=== PATIENT | male | born 1945 | race Two or more races ===

== ENCOUNTER 2017-09-02 06:14 | Day surgery (SDC) | payer OTHER ==
[2017-09-02 07:10] LABS: ADD MAN DIFF? NO
[2017-09-02 07:14] LABS: BASOPHILS % 0.7 % (0.0-2.0); EOSINOPHILS # 0.6 10^3/ul (0.0-0.5); EOSINOPHILS % 10.1 % (0.0-7.0); HEMATOCRIT 31.9 % (42.0-52.0); HEMOGLOBIN 10.4 g/dl (14.0-18.0); LYMPHOCYTES # 1.7 10^3/ul (0.8-2.9); MEAN CORPUSCULAR HGB CONC 32.6 g/dl (32.0-37.0); MEAN CORPUSCULAR VOLUME 94.9 fl (82.0-101.0); MEAN PLATELET VOLUME 9.4 fl (7.4-10.4); MONOCYTE # 0.5 10^3/ul (0.3-0.9); MONOCYTES % 9.2 % (0.0-11.0); NEUTROPHIL # 2.7 10^3/ul (1.6-7.5); NEUTROPHILS % 48.8 % (39.0-77.0); PLATELET COUNT 233 10^3/UL (140-415); RED BLOOD COUNT 3.36 10^6/ul (4.70-6.10); RED CELL DISTRIBUTION WIDTH 14.4 % (11.5-14.5)
[2017-09-02 07:14] LABS: WHITE BLOOD COUNT 5.5 10^3/ul (4.8-10.8)
[2017-09-02 07:27] LABS: ANION GAP 14 (8-16); CARBON DIOXIDE 27 mmol/L (21-31); CHLORIDE 107 mmol/L (97-110); GLUCOSE 85 mg/dl (70-220)
[2017-09-02 07:33] LABS: BLOOD UREA NITROGEN 24 mg/dl (7-20); CALCIUM 9.1 mg/dl (8.4-10.2); CREATININE 0.94 mg/dl (0.61-1.24); POTASSIUM 4.4 mmol/L (3.5-5.1); SODIUM 144 mmol/L (135-144)
[2017-09-02] MEDS ORDERED: MIDAZOLAM 1 MG/ML 2 ML INJ (07:37)
[2017-09-02] MEDS ORDERED: FENTAnyl 50 MCG/ML VIAL (07:37)
[2017-09-02] MEDS ORDERED: CEFAZOLIN 1 GM INJ (07:37)
[2017-09-02] MEDS ORDERED: PROPOFOL 0 ML (07:37)
[2017-09-02] MEDS: LIDOCAINE 1% (MPF) 30 ML INJ (07:53)
[2017-09-02] MEDS ORDERED: LABETALOL HCL 20MG INJ IV (08:00)
[2017-09-02] MEDS ORDERED: ONDANSETRON 4 MG INJ IV (08:00)
[2017-09-02] MEDS ORDERED: OXYCODONE/ACETAMINOPHEN (5/325) TAB PO ×2 (08:00)
[2017-09-02] MEDS ORDERED: MEPERIDINE 25 MG INJ IV (08:00)
[2017-09-02] MEDS ORDERED: DIPHENHYDRAMINE 50 MG INJ IV (08:00)
[2017-09-02] MEDS ORDERED: HYDROmorphONE 1 MG/5 ML IV SYRINGE IV ×3 (08:00)
[2017-09-02] MEDS ORDERED: hydrALAzine 20 MG INJ IV (08:00)
[2017-09-02] MEDS ORDERED: GENTAMICIN 80 MG/NS (PMX) 50 ML (08:04)
[2017-09-02] MEDS: POLYMYXIN/BACITRACIN 1L IRRIG (09:38)
== END 2017-09-02 10:35 | disposition home or self-care (01) ==
LOC: SDS 06:14
DX: I70.248 Atherosclerosis of native arteries of left leg with ulceration of other part of lower leg (principal); L97.823 Non-pressure chronic ulcer of other part of left lower leg with necrosis of muscle; I73.9 Peripheral vascular disease, unspecified; E11.9 Type 2 diabetes mellitus without complications
CPT/HCPCS: 11043; 80048; 82962; 85025; 93005

== ENCOUNTER 2017-09-16 06:37 | Day surgery (SDC) | payer OTHER ==
[2017-09-16] MEDS ORDERED: LIDOCAINE 1% (MPF) 30 ML INJ (06:46)
[2017-09-16] MEDS ORDERED: POLYMYXIN/BACITRACIN 1L IRRIG (06:46)
[2017-09-16 07:25] LABS: ADD MAN DIFF? NO
[2017-09-16 07:27] LABS: BASOPHIL # 0.1 10^3/ul (0.0-0.1); EOSINOPHILS # 0.9 10^3/ul (0.0-0.5); EOSINOPHILS % 14.5 % (0.0-7.0); HEMATOCRIT 34.2 % (42.0-52.0); HEMOGLOBIN 11.4 g/dl (14.0-18.0); LYMPHOCYTES # 2.2 10^3/ul (0.8-2.9); LYMPHOCYTES % 34.9 % (15.0-51.0); MEAN CORPUSCULAR HEMOGLOBIN 31.1 pg (29.0-33.0); MEAN CORPUSCULAR HGB CONC 33.3 g/dl (32.0-37.0); MEAN CORPUSCULAR VOLUME 93.4 fl (82.0-101.0); MEAN PLATELET VOLUME 9.6 fl (7.4-10.4); MONOCYTE # 0.5 10^3/ul (0.3-0.9); MONOCYTES % 8.5 % (0.0-11.0); NEUTROPHIL # 2.6 10^3/ul (1.6-7.5); NEUTROPHILS % 40.9 % (39.0-77.0); PLATELET COUNT 197 10^3/UL (140-415); RED BLOOD COUNT 3.66 10^6/ul (4.70-6.10); RED CELL DISTRIBUTION WIDTH 14.1 % (11.5-14.5)
[2017-09-16 07:27] LABS: WHITE BLOOD COUNT 6.3 10^3/ul (4.8-10.8)
[2017-09-16 07:47] LABS: INR 1.02; PROTIME 13.5 Sec (11.9-14.9); PT RATIO 1.1
[2017-09-16] MEDS ORDERED: MIDAZOLAM 1 MG/ML 2 ML INJ (08:02)
[2017-09-16 08:07] LABS: ANION GAP 17 (8-16); BLOOD UREA NITROGEN 19 mg/dl (7-20); CARBON DIOXIDE 24 mmol/L (21-31); CHLORIDE 107 mmol/L (97-110); CREATININE 0.86 mg/dl (0.61-1.24); GLUCOSE 99 mg/dl (70-220); POTASSIUM 4.4 mmol/L (3.5-5.1); SODIUM 144 mmol/L (135-144)
[2017-09-16] MEDS ORDERED: CEFAZOLIN 1 GM INJ (08:20)
[2017-09-16] MEDS: APIXABAN 5 MG TABLET PO (10:13)
== END 2017-09-16 10:25 | disposition home or self-care (01) ==
LOC: SDS 06:37
DX: I70.248 Atherosclerosis of native arteries of left leg with ulceration of other part of lower leg (principal); L97.829 Non-pressure chronic ulcer of other part of left lower leg with unspecified severity; E78.5 Hyperlipidemia, unspecified; E11.9 Type 2 diabetes mellitus without complications; I10 Essential (primary) hypertension
CPT/HCPCS: 11042; 80048; 82962; 85025; 85610; 85730

== ENCOUNTER 2017-10-07 06:01 | Day surgery (SDC) | payer OTHER ==
[2017-10-07 07:06] LABS: ADD MAN DIFF? NO
[2017-10-07 07:18] LABS: WHITE BLOOD COUNT 6.7 10^3/ul (4.8-10.8)
[2017-10-07 07:18] LABS: BASOPHIL # 0.1 10^3/ul (0.0-0.1); BASOPHILS % 0.9 % (0.0-2.0); EOSINOPHILS # 0.6 10^3/ul (0.0-0.5); EOSINOPHILS % 9.6 % (0.0-7.0); HEMATOCRIT 33.7 % (42.0-52.0); HEMOGLOBIN 10.9 g/dl (14.0-18.0); LYMPHOCYTES # 1.6 10^3/ul (0.8-2.9); LYMPHOCYTES % 24.4 % (15.0-51.0); MEAN CORPUSCULAR HEMOGLOBIN 30.8 pg (29.0-33.0); MEAN CORPUSCULAR HGB CONC 32.3 g/dl (32.0-37.0); MEAN CORPUSCULAR VOLUME 95.2 fl (82.0-101.0); MEAN PLATELET VOLUME 9.6 fl (7.4-10.4); MONOCYTE # 0.5 10^3/ul (0.3-0.9); MONOCYTES % 8.1 % (0.0-11.0); NEUTROPHIL # 3.8 10^3/ul (1.6-7.5); NEUTROPHILS % 56.7 % (39.0-77.0); PLATELET COUNT 206 10^3/UL (140-415); RED BLOOD COUNT 3.54 10^6/ul (4.70-6.10); RED CELL DISTRIBUTION WIDTH 13.7 % (11.5-14.5)
[2017-10-07] MEDS: LACTATED RINGER'S 1,000 ML IV (07:25)
[2017-10-07 07:35] LABS: INR 1.23; PARTIAL THROMBOPLASTIN TIME 34.4 Sec (25.0-35.0); PROTIME 15.7 Sec (11.9-14.9); PT RATIO 1.2
[2017-10-07 07:41] LABS: ALANINE AMINOTRANSFERASE 143 IU/L (13-69); ALBUMIN 3.8 g/dl (3.3-4.9); ALBUMIN/GLOBULIN RATIO 1.11; ALKALINE PHOSPHATASE 534 IU/L (42-121); ANION GAP 13 (8-16); ASPARTATE AMINO TRANSFERASE 142 IU/L (15-46); BILIRUBIN,INDIRECT 0.4 mg/dl (0-1.1); BILIRUBIN,TOTAL 0.4 mg/dl (0.2-1.3); BLOOD UREA NITROGEN 18 mg/dl (7-20); CALCIUM 8.8 mg/dl (8.4-10.2); CARBON DIOXIDE 24 mmol/L (21-31); CHLORIDE 108 mmol/L (97-110); CREATININE 0.91 mg/dl (0.61-1.24); GLUCOSE 99 mg/dl (70-220); POTASSIUM 4.3 mmol/L (3.5-5.1); SODIUM 141 mmol/L (135-144); TOTAL PROTEIN 7.2 g/dl (6.1-8.1)
[2017-10-07] MEDS ORDERED: MIDAZOLAM 1 MG/ML 2 ML INJ (07:53)
[2017-10-07] MEDS ORDERED: FENTAnyl 50 MCG/ML VIAL (07:53)
[2017-10-07] MEDS ORDERED: CEFAZOLIN 1 GM INJ (08:31)
[2017-10-07] MEDS ORDERED: LIDOCAINE 2% (SDV) 5 ML INJ (08:31)
[2017-10-07] MEDS ORDERED: PROPOFOL 20 ML (08:31)
[2017-10-07] MEDS ORDERED: ONDANSETRON 4 MG INJ IV (09:00)
[2017-10-07] MEDS ORDERED: DIPHENHYDRAMINE 50 MG INJ IV (09:00)
[2017-10-07] MEDS ORDERED: MEPERIDINE 25 MG INJ IV (09:00)
[2017-10-07] MEDS ORDERED: FENTAnyl 50 MCG/ML VIAL IV (09:00)
[2017-10-07] MEDS ORDERED: hydrALAzine 20 MG INJ IV (09:00)
[2017-10-07] MEDS ORDERED: HYDROmorphONE 1 MG/5 ML IV SYRINGE IV (09:00)
[2017-10-07] MEDS: HYDROmorphONE 1 MG/5 ML IV SYRINGE IV (10:02)
== END 2017-10-07 10:45 | disposition home or self-care (01) ==
LOC: SDS 06:01
DX: I70.248 Atherosclerosis of native arteries of left leg with ulceration of other part of lower leg (principal); L97.829 Non-pressure chronic ulcer of other part of left lower leg with unspecified severity; F17.200 Nicotine dependence, unspecified, uncomplicated
CPT/HCPCS: 11043; 80053; 82962; 85025; 85610; 85730; 93005